=== PATIENT | male | born 1985 | race Caucasian/White ===

== ENCOUNTER 2016-10-13 09:33 | Emergency (ER) | payer MEDICARE, OTHER ==
[2016-10-13 09:51] VITALS: BMI 34.4
[2016-10-13] MEDS ORDERED: Sodium Chloride 0.9% 1,000 ML IV STA (09:57)
--- NOTE | 2016-10-13 10:05 | ED PDOC ---
Arrival/HPI - General Historian: Patient, Parent - History of Present Illness Time/Duration: Other (last night) Symptom Course: Worsening Severity Level: Moderate Context: Home <Lena Peoples - Last Filed: 10/13/16 14:34> <Glen Noble - Last Filed: 10/13/16 17:50> - General Chief Complaint: Dizziness/Lightheaded Time Seen by Provider: 10/13/16 09:37 - History of Present Illness Narrative History of Present Illness (Text): 10/13/16 10:00 Patient is a 31 y/o Male PMH of childhood febrile seizure ( at 10 yr of age) presenting with dizziness, lightheadedness and headache. Patient states last night when he was going to bed, he felt dizzy, almost like falling when he got up from a seating position. Patient denies prior history to vertigo. Patient states prior to last night he was feeling fine, denies sick contact. Patient states the symptoms persisted this AM. The dizziness and lightheadedness is now constant. Patient states he felt like the room is spinning and admits to photophobia. Patient is currently c/o nausea, denies vomiting, diarrhea, or fever. Admits to chills. Patient admits to sob, denies cough, denies cp, denies abdominal pain and dysuria. (Lena Peoples) Past Medical History - Provider Review Nursing Documentation Reviewed: Yes - Travel History Have you recently traveled outside [place] w/in the past 3 mons?: No - Infectious Disease Hx of Infectious Diseases: None - Tetanus Immunization Tetanus Immunization: Unknown - Cardiac Hx Cardiac Disorders: No Hx Hypertension: No - Pulmonary Hx Respiratory Disorders: No Hx Tuberculosis: No - Neurological Hx Neurological Disorder: Yes HX Cerebrovascular Accident: No Hx Seizures: Yes (as a child) Other/Comment: OCD - HEENT Hx HEENT Disorder: No - Renal Hx Renal Disorder: No - Endocrine/Metabolic Hx Endocrine Disorders: No - Hematological/Oncological Hx Blood Disorders: No Hx Cancer: No - Integumentary Hx Dermatological Disorder: No - Musculoskeletal/Rheumatological Hx Musculoskeletal Disorders: No - Gastrointestinal Hx Gastrointestinal Disorders: No - Genitourinary/Gynecological Hx Genitourinary Disorders: No Hx Sexually Transmitted Diseases: No - Psychiatric Hx Psychophysiologic Disorder: Yes Hx Depression: Yes Hx Substance Use: No Other/Comment: OCD - Anesthesia Hx Anesthesia: Yes Hx Anesthesia Reactions: No Hx Malignant Hyperthermia: No - Suicidal Assessment Feels Threatened In Home Enviroment: No <Lena Peoples - Last Filed: 10/13/16 14:34> Family/Social History - Physician Review Nursing Documentation Reviewed: Yes Family/Social History: No Known Family HX Smoking Status: Never Smoked Hx Alcohol Use: No Hx Substance Use: No Hx Substance Use Treatment: No <Lena Peoples - Last Filed: 10/13/16 14:34> Allergies/Home Meds <Lena Peoples - Last Filed: 10/13/16 14:34> <Glen Noble - Last Filed: 10/13/16 17:50> Allergies/Adverse Reactions: Allergies No Known Allergies Allergy (Verified 10/13/16 09:51) Review of Systems - Review of Systems Constitutional: Normal Eyes: Photophobia ENT: absent: Tinnitus Respiratory: SOB. absent: Cough, Sputum, Wheezing Cardiovascular: Normal Gastrointestinal: Nausea. absent: Abdominal Pain, Stool Changes, Constipation, Diarrhea, Vomiting, Appetite Changes, Anorexia Genitourinary Male: Normal Musculoskeletal: Normal Skin: Normal Neurological: Headache, Dizziness. absent: Focal Weakness, Gait Changes, Speech Changes, Facial Droop, Disequilibrium, Seizure Endocrine: Normal Hemo/Lymphatic: Normal Psychiatric: Normal <Lena Peoples - Last Filed: 10/13/16 14:34> Physical Exam Vital Signs Reviewed: Yes Temperature: Afebrile Pulse: Bradycardic Respiratory Rate: Normal Appearance: Positive for: Non-Toxic, Comfortable, Ill-Appearing, Other ( lethargic.) Pain Distress: Mild Mental Status: Positive for: Alert and Oriented X 3 - Systems Exam Head: Present: Atraumatic, Normocephalic Pupils: Present: PERRL Extroacular Muscles: Present: EOMI Conjunctiva: No: Icteric Mouth: Present: Dry Neck: Present: Normal Range of Motion. No: Paraspinal Tenderness, JVD Respiratory/Chest: Present: Clear to Auscultation, Good Air Exchange. No: Respiratory Distress, Accessory Muscle Use, Wheezes, Rales, Retracting, Rhonchi , Tachypneic Cardiovascular: Present: Regular Rate and Rhythm, Normal S1, S2, Bradycardic. No: Murmurs, Tachycardic Abdomen: Present: Normal Bowel Sounds. No: Tenderness, Distention, Rebound, Guarding Upper Extremity: Present: Normal Inspection. No: Cyanosis, Edema Lower Extremity: Present: Normal Inspection. No: Edema Neurological: Present: GCS=15, CN II-XII Intact, Speech Normal, Motor Func Grossly Intact Skin: Present: Warm, Dry, Normal Color Psychiatric: Present: Alert, Oriented x 3, Normal Insight, Normal Concentration <Lena Peoples - Last Filed: 10/13/16 14:34> Medical Decision Making Re-evaluation Time: 11:45 Reassessment Condition: Improving,but remains with symptoms - Lab Interpretations I have reviewed the lab results: Yes - RAD Interpretation Clothes Marker: Radiologist - EKG Interpretation Interpreted by ED Physician: Yes Type: 12 lead EKG <Lena Peoples - Last Filed: 10/13/16 14:34> <Glen Noble - Last Filed: 10/13/16 17:50> ED Course and Treatment: 10/13/16 10:07 31 y/o male with h/o childhood febrile seizures presenting with dizziness, lightheadedness, headache, photophobia, and nausea. Differentials: vertigo versus dehydration versus hypoglycemia versus pre syncope versus arrhythmias r/o CVA, brain mass Plan: cbc, cmp, lipase, ua and fingerstick 1 L nS, zofran , and meclizine EKG, chest x-ray and reevaluate Discussed with Dr Noble. 10/13/16 11:56 Patient states he is feeling much better, not as dizzy as when he came in, and the nausea has resolved. Patient is awaiting orthostatic vital signs. 10/13/16 12:35 Negative orthostasis. Patient still feeling dizzy when he walks. CT head w/o contrast negative for mass effect and acute ischemic changes. Patient appears to have chronic bradycardia, no AV blocks on EKG. Patient to be discharged home with meclizine po, and to follow up with ENT and PMD. (Lena Peoples) Patient Seen With Resident: In agreement with resident note. Patient was seen and evaluated with resident, came up with plan and treatment together. 31 year old male presents with "spinning sensation" yesterday when he stood up. Denies fever. Denies head injury. Denies chest pain. Currently denies headache. On exam, symptoms reproduced by turning head. No facial droop, no focal weakness. Suspect vertigo. Patient will be observed in the Emergency department for treatment with Meclizine and reevaluation. PROCEDURE: CT HEAD WITHOUT CONTRAST. [facility] : Fidelia Ibrara MD Report Date : 10/13/2016 14:03:54 IMPRESSION: No acute intracranial abnormality. Patient is not orthostatic. Symptoms improved. Denies chest pain or shortness of breath. I suspect vertigo based on acute onset of symptoms and improvement with Meclizine. CT Head findings reviewed with patient. I have stressed the need for follow up with ENT. Patient bradycardic with heart rate 50-55 while laying down and resting. Review of prior ER visits and vital signs reveal heart rate typically in 60s. CXR as read by radiologist unremarkable. He denies any chest pain or shortness of breath. Prior chest xray compared to today's. He has no respiratory symptoms, no pleuritic symptoms. He is not hypotensive, he is not orthostatic. While checking orthostatics, complained of MILD dizziness but significant improvement from initial exam. Given acute onset of symptoms and "spinning sensation" by history, I suspect symptoms related to vertigo as no focal motor or sensory deficits, NO HEADACHE or acute visual symptoms on re-examination. No dental pain. No facial pain or swelling. No earache or discharge. Ambulatory. Treatment plan reviewed with patient and family, as well as need for close follow-up. 10/13/16 17:46 (Glen Noble) - Lab Interpretations Lab Results: 10/13/16 10:00 10/13/16 10:00 Lab Results 10/13/16 13:00: Urine Color Yellow, Urine Appearance Clear, Urine pH 7.0, Ur Specific [place] 1.010, Urine Protein Negative, Urine Glucose (UA) Negative, Urine Ketones Negative, Urine Blood Negative, Urine Nitrate Negative, Urine Bilirubin Negative, Urine Urobilinogen 1.0 H, Ur Leukocyte Esterase Negative 10/13/16 10:00: TSH 3rd Generation 1.18 10/13/16 10:00: Sodium 139, Potassium 4.1, Chloride 105, Carbon Dioxide 25, Anion Gap 13, BUN 9, Creatinine 0.8, Est GFR ( Amer) > 60, Est GFR (Non- Af Amer) > 60, Random Glucose 117 H, Calcium 8.9, Magnesium 2.2, Total Bilirubin 0.8, AST 53, ALT 117 H, Alkaline Phosphatase 81, Total Protein 7.1, Albumin 4.1, Globulin 2.9, Albumin/Globulin Ratio 1.4, Lipase 99 10/13/16 10:00: WBC 6.0 D, RBC 5.04, Hgb 15.1, Hct 42.7, MCV 84.7, MCH 30.0, MCHC 35.4, RDW 12.3, Plt Count 198, MPV 10.3, Gran % 41.0 L, Lymph % (Auto) 45.8 H, [place] % (Auto) 8.7 H, Eos % (Auto) 3.8, Baso % (Auto) 0.7, Gran # 2.46, Lymph # 2.8, [place] # 0.5, Eos # 0.2, Baso # 0.04 - RAD Interpretation Narrative RAD Interpretations (Text): 10/13/16 14:17 CT head w/o contrast: PARANASAL SINUSES: There is a retention cyst/ polyp in the left maxillary sinus and mild polypoid mucosal thickening in the right maxillary sinus. The remaining included paranasal sinuses are predominantly clear. MASTOID AIR CELLS: Predominantly clear. OTHER FINDINGS: None. IMPRESSION: No acute intracranial abnormality. (Lnea Peoples) Radiology Orders: 10/13/16 09:57 CHEST PORTABLE [RAD] Stat 10/13/16 12:34 HEAD W/O CONTRAST [CT] Stat - EKG Interpretation EKG Interpretation (Text): 10/13/16 14:20 Sinus bradycardia Voltage criteria for LVH. No TX, or QTC interval prolongation Normal axis. (Lena Peoples) - Medication Orders Current Medication Orders: Discontinued Medications Sodium Chloride (Sodium Chloride 0.9%) 1,000 mls @ 999 mls/hr IV .Q1H1M STA Stop: 10/13/16 10:57 Last Admin: 10/13/16 10:13 Dose: 999 mls/hr Meclizine HCl (Antivert) 12.5 mg PO STAT STA Stop: 10/13/16 09:58 Last Admin: 10/13/16 10:12 Dose: 12.5 mg Ondansetron HCl (Zofran Inj) 4 mg IVP STAT STA Stop: 10/13/16 09:58 Last Admin: 10/13/16 10:12 Dose: 4 mg - PA / [employer] / Resident Statement / has examined the patient and agrees with the treatment plan. <Glen Noble - Last Filed: 10/13/16 17:50> Disposition/Present on Arrival - Present on Arrival Any Indicators Present on Arrival: No History of DVT/PE: No History of Uncontrolled Diabetes: No Urinary Catheter: No History of Decub. Ulcer: No History Surgical Site Infection Following: None - Disposition Have Diagnosis and Disposition been Completed?: Yes Disposition Time: 14:21 Patient Plan: Discharge <RichelleLena - Last Filed: 10/13/16 14:34> <Glen Noble - Last Filed: 10/13/16 17:50> - Disposition Diagnosis: Dizziness Disposition: HOME/ ROUTINE Condition: IMPROVED Discharge Instructions (ExitCare): Vertigo (ED) Additional Instructions: Please take the meclizine as needed every 6 hrs for dizziness. Follow up with ENT, Dr Foy. Please follow up with your primary care doctor. Come back if the symptoms worsens or if you have new symptoms. Prescriptions: Meclizine [Antivert] 12.5 mg PO Q6 PRN #10 tab PRN Reason: Dizziness Referrals: Andrew Norris MD [Primary Care Provider] - Follow up with primary Regulo Foy DO [Doctor Osteopathy] - Follow up with primary Forms: [facility] (Citizen Of [place])
[2016-10-13 10:18] LABS: ADD MANUAL DIFF? NO
[2016-10-13 10:22] LABS: BASO # 0.04 K/mm3 (0.0-2.0); BASO % 0.7 % (0.0-3.0); EOS # 0.2 (0.0-0.7); EOS % 3.8 % (1.5-5.0); GRAN # 2.46 (1.4-6.5); HEMATOCRIT 42.7 % (42.0-52.0); LYMPH # 2.8 (1.2-3.4); LYMPH % 45.8 % (22.0-35.0); MEAN CELL VOLUME 84.7 fL (80.0-105.0); MEAN CORPUSCULAR HGB CONC 35.4 g/dl (31.0-37.0); MEAN PLATELET VOLUME 10.3 fl (7.0-11.0); MONO # 0.5 (0.1-0.6); MONO % 8.7 % (1.0-6.0); PLATELET COUNT 198 10^3/uL (120.0-450.0); RED CELL DISTRIBUTION WIDTH 12.3 % (11.5-14.5)
[2016-10-13 10:29] VITALS: TEMP 97.6
[2016-10-13 10:35] LABS: ALB/GLOB RATIO 1.4 (1.1-1.8); ALKALINE PHOSPHATASE 81 U/L (38-133); ALT/SGPT 117 U/L (7-56); AST/SGOT 53 U/L (15-59); BILIRUBIN,TOTAL 0.8 mg/dL (0.2-1.3); BLOOD UREA NITROGEN 9 mg/dL (7-21); CALCIUM 8.9 mg/dL (8.4-10.5); CARBON DIOXIDE 25 mmol/L (21-33); CHLORIDE 105 mmol/L (98-107); GFR AFRICAN-AMERICAN > 60; GLUCOSE,RANDOM 117 mg/dL (70-110); LIPASE 99 U/L (23-300); MAGNESIUM 2.2 mg/dL (1.7-2.2); POTASSIUM 4.1 mmol/L (3.6-5.0); SODIUM 139 mmol/L (132-148); TOTAL PROTEIN 7.1 g/dL (5.8-8.3)
--- NOTE | 2016-10-13 10:41 | RAD ---
HISTORY: Shortness of breath COMPARISON: 06/03/2015 FINDINGS: LUNGS: The lungs are clear. PLEURA: No significant pleural effusion identified, no pneumothorax apparent. CARDIOVASCULAR: Normal. OSSEOUS STRUCTURES: No significant abnormalities. VISUALIZED UPPER ABDOMEN: Normal. OTHER FINDINGS: None. IMPRESSION: No active pulmonary disease.
--- NOTE | 2016-10-13 11:53 | CARD ---
APPROVED REPORT EKG Measurement Heart [id number] [id number] <Conclusion> Sinus bradycardia with sinus arrhythmia Minimal voltage criteria for LVH, may be normal variant Borderline ECG
[2016-10-13 13:17] VITALS: O2SAT 100
--- NOTE | 2016-10-13 14:05 | CT ---
PROCEDURE: CT HEAD WITHOUT CONTRAST. HISTORY: Dizziness and nausea COMPARISON: 09/11/2013 TECHNIQUE: Axial computed tomography images were obtained through the head/brain without intravenous contrast. Radiation dose: Total exam DLP = 778.95 mGy-cm. This CT exam was performed using one or more of the following dose reduction techniques: Automated exposure control, adjustment of the mA and/or kV according to patient size, and/or use of iterative reconstruction technique. FINDINGS: HEMORRHAGE: No intracranial hemorrhage. BRAIN: [place]-white matter differentiation is preserved. There is no mass, mass effect or abnormal extra-axial fluid collection. There is no territorial infarction. VENTRICLES: The ventricles are normal in size, shape and configuration. CALVARIUM: The skull base and calvarium are normal. PARANASAL SINUSES: There is a retention cyst/ polyp in the left maxillary sinus and mild polypoid mucosal thickening in the right maxillary sinus. The remaining included paranasal sinuses are predominantly clear. MASTOID AIR CELLS: Predominantly clear. OTHER FINDINGS: None. IMPRESSION: No acute intracranial abnormality.
[2016-10-13 14:18] LABS: URINE BILIRUBIN NEGATIVE (NEGATIVE); URINE BLOOD NEGATIVE (NEGATIVE); URINE GLUCOSE (UA) NEGATIVE (NEGATIVE); URINE KETONE NEGATIVE (NEGATIVE); URINE LEUKOCYTE ESTERASE NEGATIVE Leu/uL (NEGATIVE); URINE PROTEIN NEGATIVE mg/dL (<30 mg/dL)
[2016-10-13 14:19] LABS: URINE APPEARANCE CLEAR (CLEAR); URINE COLOR YELLOW (YELLOW)
[2016-10-13 14:45] VITALS: BP 135/80; PULSE 60; RESP 16
== END 2016-10-13 14:45 | disposition home or self-care (01) ==
LOC: ED 09:33
DX: R42 Dizziness and giddiness (principal)
CPT/HCPCS: 70450; 71010; 80053; 81003; 82948; 83690; 83735; 84443; 85025; 93005; 96361; 96374; 99285; J2405; J7040

== ENCOUNTER 2017-12-15 13:24 | Emergency (ER) | payer MEDICARE, OTHER ==
[2017-12-15 13:24] VITALS: BMI 34.4
[2017-12-15] MEDS ORDERED: Sodium Chloride 0.9% 1,000 ML IV STA (14:14)
--- NOTE | 2017-12-15 14:17 | ED PDOC ---
Arrival/HPI - General Chief Complaint: Dizziness/Lightheaded Time Seen by Provider: 12/15/17 13:27 Historian: Patient - History of Present Illness Narrative History of Present Illness (Text): 12/15/17 14:15 A 32 year old male, with pmhx of febrile seizures, p/w complaining of dizziness. Patient reports upon awakening and standing up this morning dizziness which he describes. Describes dizziness as feeling lightheaded without vertigo. 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 Denies falling. He notes only lightheadedness when stands up too fast. No dark or bloody stool. No FND, No trauma. Mentions last drank water last night and at a yogurt for breakfast this morning. Denies any history of hypertension, hyperlipidemia, EtOH/substance abuse, smoking, or any family history of cardiac issues/ stroke or early . No PMD Past Medical History - Provider Review Nursing Documentation Reviewed: Yes - Travel History Have you recently traveled outside [place] w/in the past 3 mons?: No - Infectious Disease Hx of Infectious Diseases: None - Tetanus Immunization Tetanus Immunization: Unknown - Cardiac Hx Cardiac Disorders: No Hx Hypertension: No - Pulmonary Hx Respiratory Disorders: No Hx Tuberculosis: No - Neurological Hx Neurological Disorder: Yes HX Cerebrovascular Accident: No Hx Seizures: Yes (as a child) Other/Comment: OCD - HEENT Hx HEENT Disorder: No - Renal Hx Renal Disorder: No - Endocrine/Metabolic Hx Endocrine Disorders: No - Hematological/Oncological Hx Blood Disorders: No Hx Cancer: No - Integumentary Hx Dermatological Disorder: No - Musculoskeletal/Rheumatological Hx Musculoskeletal Disorders: No - Gastrointestinal Hx Gastrointestinal Disorders: No - Genitourinary/Gynecological Hx Genitourinary Disorders: No Hx Sexually Transmitted Diseases: No - Psychiatric Hx Psychophysiologic Disorder: Yes Hx Depression: Yes Hx Substance Use: No Other/Comment: OCD - Anesthesia Hx Anesthesia: Yes Hx Anesthesia Reactions: No Hx Malignant Hyperthermia: No - Suicidal Assessment Feels Threatened In Home Enviroment: No Family/Social History - Physician Review Nursing Documentation Reviewed: Yes Family/Social History: No Known Family HX Smoking Status: Never Smoked Hx Alcohol Use: No Hx Substance Use: No Hx Substance Use Treatment: No Allergies/Home Meds Allergies/Adverse Reactions: Allergies No Known Allergies Allergy (Verified 10/13/16 09:51) Review of Systems - Review of Systems Constitutional: Normal. absent: Fevers, Night Sweats Eyes: Normal ENT: Normal. absent: Sore Throat Respiratory: Normal. absent: SOB, Cough, Sputum Cardiovascular: Normal. absent: Chest Pain, Palpitations, Edema, Calf Pain, NIÑO , Orthopnea, Syncope Gastrointestinal: Normal. absent: Abdominal Pain, Diarrhea, Nausea, Vomiting Genitourinary Male: Normal. absent: Dysuria, Frequency, Hematuria, Urinary Output Changes Musculoskeletal: Normal Skin: Normal Neurological: Normal. absent: Headache, Focal Weakness, Gait Changes, Speech Changes, Facial Droop, Disequilibrium, Seizure Endocrine: Normal Hemo/Lymphatic: Normal Psychiatric: Normal Physical Exam Vital Signs Reviewed: Yes Vital Signs Temp Pulse Resp BP Pulse Ox 12/15/17 13:40 98.3 F 68 19 150/87 97 Temperature: Afebrile Blood Pressure: Normal Pulse: Regular Respiratory Rate: Normal Appearance: Positive for: Well-Appearing, Non-Toxic, Comfortable Pain Distress: None Mental Status: Positive for: Alert and Oriented X 3 Finger Stick Blood Glucose: 104 - Systems Exam Head: Present: Atraumatic, Normocephalic Pupils: Present: PERRL Extroacular Muscles: Present: EOMI Conjunctiva: Present: Normal Mouth: Present: Moist Mucous Membranes Neck: Present: Normal Range of Motion. No: Meningeal Signs Respiratory/Chest: Present: Clear to Auscultation, Good Air Exchange. No: Respiratory Distress, Accessory Muscle Use, Wheezes, Decreased Breath Sounds Cardiovascular: Present: Regular Rate and Rhythm, Normal S1, S2, Peripheal Pulses Present. No: Murmurs, Irregular Rhythm, Tachycardic, Bradycardic, Rub, Gallop Abdomen: No: Tenderness, Distention, Peritoneal Signs Back: Present: Normal Inspection Upper Extremity: Present: Normal Inspection. No: Cyanosis, Edema Lower Extremity: Present: Normal Inspection. No: Edema Neurological: Present: GCS=15, CN II-XII Intact, Speech Normal, Motor Func Grossly Intact, Normal Sensory Function, Normal Cerebellar Funct, Gait Normal, Memory Normal Skin: Present: Warm, Dry, Normal Color. No: Rashes Psychiatric: Present: Alert, Oriented x 3, Normal Insight, Normal Concentration Medical Decision Making ED Course and Treatment: 12/15/17 14:19 Impression: 32 year old male with dizziness, described as lightheadedness. Pt notes lightheadedness only in a warm room. Pt has also not drank anything this morning, given normal physical findings and location specific symptoms, likely heat exhaustion and dehydration. Will rx with fluids and check labs. No meningeal signs or FND. Plan: -- EKG -- IV Fluids -- Labs -- Reassess and disposition Progress Notes: EK, NSR, no stemi 1608 Stable neuro exam. Pt in NAD, ambulating without issue in ED around unit, lightheadedness has resolved tolerating clears, clear for d/c home - Lab Interpretations Lab Results: 12/15/17 14:36 12/15/17 14:36 Lab Results 12/15/17 14:36: TSH 3rd Generation 0.88 12/15/17 14:36: Sodium 146, Potassium 4.6, Chloride 109 H, Carbon Dioxide 28, Anion Gap 14, BUN 7, Creatinine 0.9, Est GFR ( Amer) > 60, Est GFR (Non- Af Amer) > 60, Random Glucose 121 H, Calcium 9.2, Magnesium 2.3 H, Total Bilirubin 1.0, AST 97 H, ALT 171 H, Alkaline Phosphatase 76, Total Protein 7.2, Albumin 4.1, Globulin 3.1, Albumin/Globulin Ratio 1.4 12/15/17 14:36: WBC 5.2, RBC 5.04, Hgb 14.8, Hct 42.9, MCV 85.1, MCH 29.4, MCHC 34.5, RDW 12.5, Plt Count 198, MPV 10.6, Gran % 54.2, Lymph % (Auto) 37.2 H, [place] % (Auto) 6.1 H, Eos % (Auto) 1.7, Baso % (Auto) 0.8, Gran # 2.82, Lymph # ( Auto) 1.9, [place] # (Auto) 0.3, Eos # (Auto) 0.1, Baso # (Auto) 0.04 - Medication Orders Current Medication Orders: Discontinued Medications Sodium Chloride (Sodium Chloride 0.9%) 1,000 mls @ 999 mls/hr IV .Q1H1M STA Stop: 12/15/17 15:14 Last Admin: 12/15/17 14:53 Dose: 999 mls/hr eMAR Start Stop Document 12/15/17 14:53 [email or web address] (Rec: 12/15/17 14:53 [id number]) Intravenous Solution Start Date 12/15/17 Start Time 14:53 - Scribe Statement The provider has reviewed the documentation as recorded by the Yajaira Ruiz Provider Scribe Attestation: All medical record entries made by the Scribe were at my direction and personally dictated by me. I have reviewed the chart and agree that the record accurately reflects my personal performance of the history, physical exam, medical decision making, and the department course for this patient. I have also personally directed, reviewed, and agree with the discharge instructions and disposition. Disposition/Present on Arrival - Present on Arrival Any Indicators Present on Arrival: No History of DVT/PE: No History of Uncontrolled Diabetes: No Urinary Catheter: No History of Decub. Ulcer: No History Surgical Site Infection Following: None - Disposition Have Diagnosis and Disposition been Completed?: Yes Diagnosis: Heat exhaustion Disposition: HOME/ ROUTINE Disposition Time: 16:22 Condition: GOOD Additional Instructions: ESTHER CURTIS, thank you for letting us take care of you today. Your provider was Krishna Noble and you were treated for DIZZINESS. The emergency medical care you received today was directed at your acute symptoms. If you were prescribed any medication, please fill it and take as directed. It may take several days for your symptoms to resolve. Return to the Emergency Department if your symptoms worsen, do not improve, or if you have any other problems. Please contact your doctor or call one of the physicians/clinics you have been referred to that are listed on the Patient Visit Information form that is included in your discharge packet. Bring any paperwork you were given at discharge with you along with any medications you are taking to your follow up visit. Our treatment cannot replace ongoing medical care by a primary care provider outside of the emergency department. Thank you for allowing the [facility] team to be part of your care today. If you had an X-Ray or CT scan: A Radiologist will review the ED reading if any change in treatment is needed we will contact you. If you had a blood, urine, or wound culture: It will take several days for the results, if any change in treatment is needed we will contact you. If you had an STI test: It will take 48 hours for the results. Please call after 1 week if you have not heard back. Referrals: Kina Gomez MD [Medical Doctor] - Follow up with primary Forms: [employer] ([place])
[2017-12-15 15:00] LABS: BASO # 0.04 K/mm3 (0.0-2.0); BASO % 0.8 % (0.0-3.0); EOS # 0.1 (0.0-0.7); EOS % 1.7 % (1.5-5.0); GRAN # 2.82 (1.4-6.5); GRAN % 54.2 % (50.0-68.0); HEMOGLOBIN 14.8 g/dL (14.0-18.0); LYMPH # 1.9 (1.2-3.4); LYMPH % 37.2 % (22.0-35.0); MEAN CELL VOLUME 85.1 fl (80.0-105.0); MEAN CORPUSCULAR HEMOGLOBIN 29.4 pg (25.0-35.0); MEAN CORPUSCULAR HGB CONC 34.5 g/dl (31.0-37.0); MEAN PLATELET VOLUME 10.6 fl (7.0-11.0); MONO # 0.3 (0.1-0.6); MONO % 6.1 % (1.0-6.0); RBC 5.04 10^6/uL (3.5-6.1); RED CELL DISTRIBUTION WIDTH 12.5 % (11.5-14.5); WHITE BLOOD COUNT 5.2 10^3/ul (4.5-11.0)
[2017-12-15 15:07] LABS: ALB/GLOB RATIO 1.4 (1.1-1.8); ALBUMIN 4.1 g/dL (3.0-4.8); ALT/SGPT 171 U/L (7-56); AST/SGOT 97 U/L (17-59); BLOOD UREA NITROGEN 7 mg/dL (7-21); CALCIUM 9.2 mg/dL (8.4-10.5); GFR NON-AFRICAN AMERICAN > 60
[2017-12-15 17:13] VITALS: BP 154/68; RESP 18
[2017-12-15 18:04] VITALS: PULSE 67; TEMP 98.7; O2SAT 99
--- NOTE | 2017-12-16 09:49 | CARD ---
APPROVED REPORT Date of service: 12/15/2017 EKG Measurement Heart [id number] 130P10 [id number] <Conclusion> Normal sinus rhythm LVH by voltage NSSTW changes
== END 2017-12-15 18:48 | disposition home or self-care (01) ==
LOC: ED 13:24
DX: T67.5XXA Heat exhaustion, unspecified, initial encounter (principal)
CPT/HCPCS: 80053; 83735; 84443; 85025; 86850; 86900; 93005; 99285; J7030